=== PATIENT | male | born 1990 | race Caucasian/White ===

== ENCOUNTER 2025-05-08 13:10 | Outpatient (AMB) | payer OTHER, SELFPAY ==
--- NOTE | 2025-05-08 13:12 | A.OFFPC_ITS ---
Vital Signs 05/08/25 13:13 Height 5 ft 8.9 in Weight 258 lb BMI 38.2 BP 122/80 Blood Pressure Location Lt brachial Position Sitting Pulse 60 Pulse Source Pulse Oximeter Temp 97.1 F Temp Source Temporal Artery Scan Pulse Oximetry (%) 98 Oxygen Delivery Method Room Air Intake Visit Reasons: Establish Care Intake Note: Patient is new to the practice and is establishing care. She is transferring from [facility] and has not seen a primary care provider in over 4?5 years. Medical records were requested today. 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 Accompanied by: Self / Same As Patient Allergies No Known Allergies (No Known Allergies*) Allergy (Verified 05/08/25 13:18) Medication List - Last Reconciled 05/08/25 by Nam Dempsey PA-C No Known Home Meds Tobacco use date assessed: 05/08/25 Dental Screening Dental Screen Date: 05/08/25 Did you have a dental visit in the last 12 months?: No Did you have a dental problem in the last 6 months where you did not have access to dental care?: No Was dental information given to patient?: Yes HPI Establish Care HPI Details The patient is a 34-year-old male presenting for a wellness visit and evaluation of ear symptoms. Class 2 obesity: The patient has a history of obesity, previously weighing 300 pounds and currently weighing 258 pounds due to daily exercise and dietary changes, including a low-carbohydrate diet. He reports a significant improvement in blood pressure, now measuring 122/80 mmHg, attributed to lifestyle modifications. Right ear cerumen impaction: The patient experiences recurrent cerumen impaction in the right ear, a condition shared by family members, causing temporary hearing loss upon waking. He uses peroxide-based ear drops to manage the condition but avoids inserting objects into the ear canal to prevent further impaction. Family history of cardiovascular disease: The patient has a family history of c ardiovascular disease, with his paternal grandfather having from a heart attack in his 50s and an uncle with blood-related issues requiring anticoagulation therapy. 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 1. Little interest or pleasure in doing things: not at all 2. Feeling down, depressed, or hopeless: not at all 3. Trouble falling or staying asleep, or sleeping too much: not at all 4. Feeling tired or having little energy: not at all 5. Poor appetite or overeating: not at all 6. Feeling bad about yourself - or that you are a failure or have let yourself or your family down: not at all 7. Trouble concentrating on things, such as reading the newspaper or watching television: not at all 8. Moving or speaking so slowly that other people could have noticed. Or the opposite - being so fidgety or restless that you have been moving around a lot more than usual: not at all 9. Thoughts that you would be better off or of hurting yourself in some way: not at all Total score: 0 Depression Screening Interpretation: Negative Depression Screening Done: Yes 44179 - PHQ-9 Billing: Yes Source: Developed by Drs. Schuyler Caballero, Hannah Nicole, Vega Osborne and colleagues, with an educational manju from [employer]. Thrive Questionnaire Date Thrive assessed: 05/08/25 I am a: Patient What is your living situation today?: I have a steady place to live Within the past 12 months, did the food you bought not last and you didn't have the money to get more?: Never true Within the past 12 months, did you worry whether your food would run out before you got money to buy more?: Never true Do you have trouble paying for medicines?: No Do you have trouble getting transportation to medical appointments?: No Do you have trouble paying your heating and electricity bill?: No Do you have trouble taking care of your child, family member or friend?: No Do you have trouble with day-to-day activities such as bathing, preparing meals, shopping, managing finances, etc.?: No Are you currently unemployed and looking for a job?: No Are you interested in more education?: No Please select the resources that you would like help with: None Currently or been in a relationship where the following occur: I choose not to answer THRIVE Score: 0 AUDIT C Alcohol Use Questionnaire (AUDIT-C) 1. How often do you have a drink containing alcohol?: Monthly or less 2. How many drinks containing alcohol do you have on a typical day when you are drinking?: 1 or 2 3. How often do you have six or more drinks on one occasion?: Never Total Score: 1 ENZO-7 AMB Questionnaire ENZO-7 Date ENZO - 7 assessed: 05/08/25 Feeling nervous, anxious, or on edge: 0 = Not at all Not being able to stop or control worryin = Not at all Worrying too much about different things: 0 = Not at all Trouble relaxin = Not at all Being so restless that it is hard to sit still: 0 = Not at all Becoming easily annoyed or irritable: 0 = Not at all Feeling afraid as if something awful might happen: 0 = Not at all Total ENZO-7 score (0-4 normal; 5-9 mild; 10-14 moderate; 15-21 severe): 0 Source: Developed by Drs. Schuyler Caballero, Hannah Nicole, Vega Osborne and colleagues, with an educational majnu from [employer]. ENZO-7 Assessment Billing ENZO-7 Assessment Tool: ENZO-7 Assessment 03890 Review of Systems Const Denies headache(s) Eyes Denies loss of vision ENT Denies vertigo, Denies dizziness, Denies headache(s) and Denies sore throat Card Denies chest pain, Denies leg edema and Denies lightheadedness Resp Denies cough, Denies hemoptysis and Denies wheezing GI Denies abdominal pain, Denies melena, Denies constipation, Denies diarrhea and Denies vomiting Denies dysuria, Denies urinary frequency and Denies urinary urgency Musc Denies arthralgias, Denies joint swelling, Denies numbness and Denies tingling Neuro Denies Abnormal speech present, Denies behavioral changes, Denies vertigo, Denies dizziness, Denies headache(s), Denies loss of vision, Denies memory loss, Denies numbness and Denies tingling Psych Denies anxiety, Denies behavioral changes, Denies depression, Denies memory loss and Denies panic attacks Gómez/Lymph Denies easy bleeding and Denies easy bruising Aller/Immun Denies wheezing Physical exam (Primary Care) Vital Signs: Last Vital Signs Temp 97.1 F 05/08/25 13:13 Pulse 60 05/08/25 13:13 BP 122/80 05/08/25 13:13 Pulse Ox 98 05/08/25 13:13 Oxygen Delivery Method Room Air 05/08/25 13:13 BMI result Body Mass Index 38.2 BMI Assessment/Plan discussion: High BMI High, discussed plan: lifestyle, weight reduction, dietary and physical activity Tobacco/Smoking Status: Tobacco use Status Tobacco use date assessed 05/08/25 05/08/25 13:18 Patient Tobacco Use Status Never used Tobacco 05/08/25 13:28 e-Cigarette/Vaping Use Former Use 05/08/25 13:18 PHQ-9: PHQ-9 Score PHQ-9: Total score 0 05/08/25 13:20 Depression Screening Interpretation: Negative Thrive Assessment: Date of Thrive Assessment Date Thrive assessed 05/08/25 05/08/25 13:18 Currently or been in a relationship where the following occur: I choose not to answer Const General: healthy appearing, no acute distress, alert and awake Nutritional Appearance: well nourished Orientation/consciousness: oriented to person, oriented to place and oriented to time HENMT Other: RIGHT EAR EXTERNAL CANAL WITH CERUMEN IMPACTION Ears: right TM abnormal and TM normal on the left General nose exam: Normal nasal mucous membranes and turbinates present Eyes Conjunctivae: conjunctivae normal Sclerae: sclerae normal Pupils: Equal, round and reactive pupils present Neck Neck: Yes no lymphadenopathy and Yes no JVD Thyroid: Thyroid normal Carotids: no bruits Resp Effort & Inspection: normal respiratory effort and not tachypneic Auscultation: no crackles, no rales, no rhonchi and no wheezes Cardio Rate: regular rate Rhythm: regular rhythm Heart sounds: no murmurs and normal S1 and S2 GI Palpation (GI): Soft to palpation, nontender, no hepatomegaly and no splenomegaly Auscultation: normal bowel sounds Skin General skin exam: no rashes or lesions noted and dry skin Neuro General: oriented to person, oriented to place and oriented to time Cranial nerves: Yes Equal, round and reactive pupils present Speech: No Abnormal speech present Gait exam (Neuro): Normal gait present Motor exam (neuro): no tremor noted Extrem Right upper extremity: full ROM Left upper extremity: full ROM Right lower extremity: full ROM; no edema Left lower extremity: full ROM; no edema Psych Mental Status: mental status grossly normal Speech and movement: Normal speech and movement present Affect: normal affect Attitude: cooperative Thought process: Normal thought process present Coding Level of Care Code New Pt Level 4 (84441) Diagnoses Class 2 obesity E66.812 Screening for diabetes mellitus (DM) Z13.1 Family history of high cholesterol Z83.42 Right ear impacted cerumen H61.21 Additional Codes ENZO-7 Assessment Billing - ENZO-7 Assessment Tool: ENZO-7 Assessment 38100 ([id number]) PHQ-9 - 05124 - PHQ-9 Billing: Yes ([id number]) Assessment & Plan Assessment & Plan (1) Class 2 obesity: Code(s): E66.812 - Obesity, class 2 Category: Medical Plan: Patient does understand his BMI is over 30 and will work on being physically active and adapting to better eating habits to reduce his weight. He reports he has been more physically active and [employer] and has been on low carbohydrate diet and has lost 40 lb over the last year. (2) Screening for diabetes mellitus (DM): Code(s): Z13.1 - Encounter for screening for diabetes mellitus Category: Medical Plan: As per HPI (3) Family history of high cholesterol: Code(s): Z83.42 - Family history of familial hypercholesterolemia Category: Medical Plan: Patient has a family history of high cholesterol and cardiovascular disease. Will check patient's lipid panel to evaluate his cardiovascular risk. He has been working on lifestyle and dietary modifications and has lost significant amount of weight over the last year. Goal LDL to be below 160 (4) Right ear impacted cerumen: Code(s): H61.21 - Impacted cerumen, right ear Category: Medical Plan: Patient has a chronic right ear cerumen impaction. Tried lavage today in office was able to dislodge cerumen though continues to have impaction, he will go home and use ear drops to soften the cerumen and will has been back for ear lavage in 2 weeks. Orders: Orders Complete Blood Count no Diff 05/08/25 Z13.1 - Encounter for screening for diabetes mellitus Lipid Panel 05/08/25 Z83.42 - Family history of familial hypercholesterolemia Comprehensive Peak. Panel Fast 05/08/25 Z13.1 - Encounter for screening for diabetes mellitus
[2025-05-08 13:13] VITALS: BP 122/80; PULSE 60; TEMP 36.2; O2SAT 98; BMI 38.2
== END 2025-05-08 14:03 | disposition home or self-care (01) ==
PROVIDERS: PCP Physician Assistant; Visit Provider Physician Assistant
DX: Z00.00 Encounter for general adult medical examination without abnormal findings (principal); E66.812 Obesity, class 2; Z68.38 Body mass index [BMI] 38.0-38.9, adult; Z13.1 Encounter for screening for diabetes mellitus; Z83.42 Family history of familial hypercholesterolemia; H61.21 Impacted cerumen, right ear

== ENCOUNTER → 2025-05-08 13:10 | Outpatient (BNVA) | payer OTHER, SELFPAY | PROVIDERS: PCP Physician Assistant; Visit Provider Physician Assistant | DX: E66.812 Obesity, class 2 (principal); H61.21 Impacted cerumen, right ear; Z83.42 Family history of familial hypercholesterolemia; Z68.38 Body mass index [BMI] 38.0-38.9, adult | CPT/HCPCS: 69209; 96127; 99385 ==

== ENCOUNTER 2025-05-11 08:28 | Outpatient (REF) | payer OTHER, SELFPAY ==
[2025-05-11 09:07] LABS: Hematocrit 43.1 % (42.0-52.0); Hemoglobin 14.6 g/dl (14.0-18.0); Mean Corpuscular HGB Conc 33.9 g/dl (31.0-36.0); Mean Corpuscular Hemoglobin 29.4 pg (27.0-33.0); Mean Corpuscular Volume 86.7 fL (80.0-98.0); NRBC Abs Auto 0.000 X10*3/uL (0.0-0.012); NRBC Pct Auto 0.0 /100WBC (0.0-0.2); Platelet Count 228 X10*3/uL (160-400); Red Blood Count 4.97 X10*6/uL (4.60-5.80); White Blood Count 7.2 X10*3/uL (4.8-10.8)
[2025-05-11 09:51] LABS: Alanine Aminotransferase 62 U/L (0-40); Albumin Level 4.6 g/dL (3.5-5.0); Alkaline Phosphatase 65 U/L (39-117); Anion Gap 11 (12-20); Aspartate Amino Transferase 45 U/L (5-37); Blood Urea Nitrogen 27 mg/dL (9-16); Calcium 9.2 mg/dL (8.4-10.2); Carbon Dioxide 25 mmol/L (22-29); Chloride 108 mmol/L (96-108); Cholesterol 137 mg/dL (<200); Estimated Glomerular Filt Rate > 60; HDL Cholesterol 39 mg/dL (>40); Potassium 4.1 mmol/L (3.3-5.1); Sodium 140 mmol/L (135-145); Total Protein 7.0 g/dL (6.5-8.0); Triglycerides 32 mg/dL (<150)
== END 2025-05-11 08:29 | disposition home or self-care (01) ==
LOC: HO.LAB 08:28
PROVIDERS: PCP Physician Assistant; Visit Provider Physician Assistant
DX: Z13.1 Encounter for screening for diabetes mellitus (principal); Z83.42 Family history of familial hypercholesterolemia
CPT/HCPCS: 36415; 80053; 80061; 85027